=== PATIENT | female | born 1955 | race Caucasian/White ===

== ENCOUNTER 2021-06-24 10:02 | Emergency (ER) | payer MEDICARE ==
[2021-06-24] MEDS ORDERED: SODIUM CHLORIDE 0.9% 1,000 ML IV STA (10:28)
[2021-06-24 11:11] LABS: BASOPHILS # (AUTO) 0.1 10^3/uL (0.0-0.1); BASOPHILS % (AUTO) 0.7 %; EOSINOPHILS # (AUTO) 0.4 10^3/uL (0.0-0.7); EOSINOPHILS % (AUTO) 5.1 %; HCT - HEMATOCRIT 36.2 % (37.0-47.0); HGB - HEMOGLOBIN 11.5 g/dL (12.0-16.0); LYMPHOCYTES # (AUTO) 2.2 10^3/uL (1.5-3.5); MEAN CORPUSCULAR HEMOGLOBIN 27.3 pg (27.0-31.0); MEAN CORPUSCULAR HGB CONC 31.8 g/dL (32.0-36.0); MEAN CORPUSCULAR VOLUME 85.8 fL (81.0-99.0); MEAN PLATELET VOLUME 8.8 fL (7.9-10.8); MONOCYTES # (AUTO) 0.8 10^3/uL (0.0-1.0); MONOCYTES % (AUTO) 10.5 %; NEUTROPHILS # (AUTO) 4.2 10^3/uL (1.5-6.6); NEUTROPHILS % (AUTO) 54.4 %; PLT - PLATELET COUNT 265 10^3/uL (130-450); RED BLOOD COUNT 4.22 10^6/uL (4.20-5.40); RED CELL DISTRIBUTION WIDTH 14.1 % (12.0-15.0); WHITE BLOOD COUNT 7.7 x10^3/uL (4.8-10.8)
--- NOTE | 2021-06-24 11:23 | CT Report ---
PROCEDURE: HEAD WO INDICATIONS: visual changes TECHNIQUE: Noncontrast 4.5 mm thick angled axial sections acquired from the foramen magnum to the vertex. For r adiation dose reduction, the following was used: automated exposure control, adjustment of mA and/or kV according to patient size. COMPARISON: None. FINDINGS: Image quality: There is streak artifact seen through the skull base. CSF spaces: Basal cisterns are patent. No extra-axial fluid collections. Ventricles are normal in size and shape. Brain: No midline shift. No intracranial masses or hemorrhage. [place]-white matter interface is norm al. Skull and face: Calvarium and visualized facial bones are intact, without suspicious lesions. Sinuses: Visualized sinuses and mastoids are clear. IMPRESSION: Unremarkable noncontrast head CT, without an imaging explanation found for the patient's presenting h istory. If it would be helpful for clinical management decision making, please consider a dedicated brain MRI (orbits protocol, without and with contrast) for further evaluation (assuming that there is no contr aindication). Reviewed by: Devante Colon MD on 06/24/2021 10:[address] [facility] Approved by: Devante Colon MD on 06/24/2021 10:[address] [facility] Station ID: [id number]
[2021-06-24 11:24] LABS: ALBUMIN 3.7 g/dL (3.2-5.5); ALBUMIN/GLOBULIN RATIO 1.1 (1.0-2.2); BILIRUBIN,TOTAL 0.5 mg/dL (0.2-1.0); CALCIUM 9.2 mg/dL (8.5-10.3); CREATININE 0.7 mg/dL (0.4-1.0); POTASSIUM 4.1 mmol/L (3.5-5.0); TOTAL PROTEIN 7.1 g/dL (6.7-8.2)
--- NOTE | 2021-06-24 11:24 | XRAY Report ---
PROCEDURE: Chest 1 View X-Ray INDICATIONS: chest pain TECHNIQUE: One view of the chest was acquired. COMPARISON: Correlation is made with the accompanying head CT, 06/24/2021. FINDINGS: Surgical changes and devices: None. Lungs and pleura: No pleural effusions or pneumothorax. Lungs are clear. Mediastinum: Mediastinal contours appear normal. Heart size is normal. Bones and chest wall: No suspicious bony lesions. Age-appropriate degenerative changes are seen. O verlying soft tissues appear unremarkable. IMPRESSION: Unremarkable portable chest for age. Reviewed by: Devante Colon MD on 06/24/2021 10:22 AM [facility] Approved by: Devante Colon MD on 06/24/2021 10:22 AM [facility] Station ID: [id number]
[2021-06-24] MEDS ORDERED: GADOBUTROL 7.5 MMOL/7.5 ML VIAL ONE (12:51)
--- NOTE | 2021-06-24 14:32 | MRI Report ---
PROCEDURE: Brain W/WO INDICATIONS: intermittent visual changes CONTRAST: IV CONTRAST: Gadavist ml: 7.1 TECHNIQUE: Noncontrast axial T1 spin echo, axial T2 fast spin echo, sagittal and axial FLAIR, coronal T2 fast sp in echo, axial gradient echo, axial diffusion and ADC through the brain. After the administration of contrast, axial and coronal T1 spin echo with fat saturation through the brain. Additional thin sect ion coronal T2-weighted images were obtained through the midbrain and the orbits. Additional thin sec tion axial T1-weighted pre and postcontrast imaging was obtained through the orbits, with postcontras t fat-saturated images in the coronal and axial planes. COMPARISON: Correlation is made with the prior head CT, 06/24/2021. FINDINGS: Image quality: Excellent. CSF spaces: Basal cisterns are patent. No extra-axial fluid collections. Ventricles are normal in size and shape. Brain: No midline shift. No intracranial bleeds or masses. No abnormal intracranial enhancement. There is cerebral volume loss for age. There is periventricular white matter chronic small vessel is chemic change. The brainstem appears normal. Diffusion-weighted images demonstrate no acute ischemi c insults. No chronic ischemic insults. Normal intravascular flow voids are present. Skull and face: Calvarial marrow is normal in signal. In this patient with this given history, scrutiny is given to the orbits. No significant orbital abno rmality can be seen. The globes demonstrate a normal, symmetric appearance. No orbital masses are see n. The extraocular muscles demonstrate a normal, symmetric appearance. Sinuses: Sinuses and mastoids appear clear. IMPRESSION: No imaging explanation is found for the patient's presenting symptoms. No orbital abnormality can be seen. No findings of acute or subacute infarction are seen. Age-appropriate brain parenchymal volume loss and chronic small vessel ischemic change can be seen. Reviewed by: Devante Colon MD on 06/24/2021 1:31 PM [facility] Approved by: Devante Colon MD on 06/24/2021 1:31 PM [facility] Station ID: [id number]
--- NOTE | 2021-06-24 14:46 | ED Physician Documentation ---
History of Present Illness - Stated complaint Stated Complaint: SOA/DOUBLE VISION - Chief complaint Chief Complaint: Resp - History obtained from History obtained from: Patient - Additonal information Additional information: Patient comes emergency department for chief complaint of increasing dyspnea on exertion for the last 3 months and also, brief, intermittent episodes of diplopia. She states that the diplopic episodes have occurred randomly and by weeks of time. She has had about 5 episodes so far. She states that she will have a sudden sense of double vision that involves only 1 eye, though can be either 1 or the other. She states that she knows is just 1 eye because she will cover her eyes 1 at a time and she can detect the diplopia even while just looking with one eye. She states that the episodes last maybe 1 minute and then resolve on their own. She also states she has had an episode of "hazy" vision in the lower half of her vision that also lasted approximately 30 to 60 seconds and then went away. She states she will feel a strange feeling of awareness of her eye when these episodes happen, but no pain. She denies any other symptoms of any kind when this happens. She has not had any other neurologic symptoms whatsoever. No history of of stroke. The patient states that she normally walks a lot and that she started to notice that on her morning walks a few months ago, she was becoming more winded than usual. She states that she began to have to stop sometimes 3 times going uphill where she had not had to do this before. Patient states that yesterday, she noticed that even is walking around her house and talking at the same time made her feel short of breath. She denies any chest pain. No nausea. Patient states that she has no history of coronary artery disease. There is no history in her family except for 2 relatives who were smokers and otherwise did not take care of themselves. No primary relatives with coronary artery disease. Patient is not a smoker. No diabetes. She has a history of hypertension which is well controlled. No other complaints at this time. She states she is feeling fine just sitting in the bed. She denies any chest pain, nausea, or facial sweating. She has not feeling short of breath right now. She states that they live on the [address] in [place] most of the time, but has been up here helping her mom and building a house that they can living part-time to help her mother. Patient states they have been here about a year and that has been very stressful. She also states that her primary doctors at [place] so she has not seen her doctor in over a year. She does have an appointment coming up in August when they go back to [place]. She does not have a primary doctor here. Review of Systems Ten Systems: 10 systems reviewed and negative Constitutional: reports: Reviewed and negative Eyes: reports: Other (visual phenomena) Ears: reports: Reviewed and negative Nose: reports: Reviewed and negative Throat: reports: Reviewed and negative Cardiac: reports: Reviewed and negative. denies: Chest pain / pressure Respiratory: reports: Dyspnea GI: reports: Reviewed and negative : reports: Reviewed and negative Skin: reports: Reviewed and negative Musculoskeletal: reports: Reviewed and negative Neurologic: reports: Reviewed and negative Psychiatric: reports: Reviewed and negative Endocrine: reports: Reviewed and negative Immunocompromised: reports: Reviewed and negative PD PAST MEDICAL HISTORY - Past Medical History Past Medical History: Yes Cardiovascular: High cholesterol - Allergies Allergies/Adverse Reactions: Allergies Allergy/AdvReac Type Severity Reaction Status Date / Time No Known Drug Allergies Allergy Verified 06/24/21 10:09 - Social History Does the pt smoke?: No Smoking Status: Never smoker PD ED PE NORMAL - Vitals Vital signs reviewed: Yes - General General: Alert and oriented X 3, No acute distress, Well developed/nourished - HEENT HEENT: Atraumatic, PERRL, EOMI, Moist mucous membranes - Neck Neck: Supple, no meningeal sign - Cardiac Cardiac: RRR, No murmur, Strong equal pulses - Respiratory Respiratory: No respiratory distress, Clear bilaterally - Abdomen Abdomen: Soft, Non tender, Non distended - Derm Derm: Normal color, Warm and dry, No rash - Extremities Extremities: No deformity, No edema, No calf tenderness / cord - Neuro Neuro: Alert and oriented X 3, 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, No motor deficit, No sensory deficit, Normal speech - Psych Psych: Normal mood, Normal affect Results - Vitals Vitals: Oxygen O2 Source Room air - EKG (time done) 1115 Rate: Rate (enter#) (68) Rhythm: NSR [place]: Normal Intervals: Normal [place] QRS: Normal Ischemia: Normal ST segments Compare to prior EKG: Old EKG unavailable Computer interpretation: Agree with computer - Labs Labs: Laboratory Tests 06/24/21 06/24/21 06/24/21 10:51 10:51 10:51 WBC 7.7 RBC 4.22 Hgb 11.5 L Hct 36.2 L MCV 85.8 MCH 27.3 MCHC 31.8 L RDW 14.1 Plt Count 265 MPV 8.8 Neut # (Auto) 4.2 Lymph # (Auto) 2.2 [place] # (Auto) 0.8 Eos # (Auto) 0.4 Baso # (Auto) 0.1 Absolute Nucleated RBC 0.00 Nucleated RBC % 0.0 Sodium 139 Potassium 4.1 Chloride 103 Carbon Dioxide 26 Anion Gap 10.0 BUN 15 Creatinine 0.7 Estimated GFR (MDRD) 84 L Glucose 97 Calcium 9.2 Total Bilirubin 0.5 AST 14 ALT 11 Alkaline Phosphatase 80 B-Natriuretic Peptide 50 Total Protein 7.1 Albumin 3.7 Globulin 3.4 Albumin/Globulin Ratio 1.1 Lipase 29 - Rads (name of study) Ct head Radiology: Final report received, EMP read indepedently, See rad report (neg) MR brain Radiology: Final report received, EMP read indepedently, See rad report (neg) CXR Radiology: Final report received, EMP read indepedently, See rad report (neg) PD MEDICAL DECISION MAKING - ED course Complexity details: reviewed results, re-evaluated patient, considered differential, d/w patient ED course: PT was well-appearing in the ED, but given her sx and lack of local PCP, she was worked up extensively, with labs, EKG, CXR, CT head, and ultimately, MR brain. The entire work-up was negative, and pt had no sx while in the ED. We have discussed that it is very important that the pt immediately establish herself with primary care to follow up on both of these issues. I have also recommended ophthalmology follow-up, and have given her recommendations for both. We have discussed the usual indications for return. Departure - Departure Disposition: 01 Home, Self Care Clinical Impression: Dyspnea on exertion, Diplopia Condition: Stable Instructions: ED Double Vision, ED Dyspnea Shortness of Breath Follow-Up: Alejo Christensen MD [Credentialed Staff Provider] - Kevin Ulloa MD [Provider Admit Priv/Credential] - Marco Antonio Garibay MD [Physician No Access] - Carlos Soni MD [Provider Admit Priv/Credential] - Nish Serrano MD [Provider Admit Priv/Credential] - Comments: Your labs, CT scan, and MRI all look good, as does your EKG. It is not clear why you are having the shortness of breath with exertion and the episodes of visual changes. However, it is very important that you establish primary care while you are here on would be, to get this further investigated. You should also follow-up with ophthalmology, just to be sure you do not have a primary eye issue. If you develop severe chest pain or shortness of breath, or other concerning symptoms such as facial sweating or nausea, please return to the emergency department immediately. Discharge Date/Time: 06/24/21 15:13
[2021-06-24 14:59] VITALS: BP 116/73
[2021-06-25] MEDS ORDERED: GADOBUTROL 7.5 MMOL/7.5 ML VIAL IVP ONE (11:07)
== END 2021-06-24 15:13 | disposition home or self-care (01) ==
LOC: ED 10:02
DX: R06.09 Other forms of dyspnea (principal); H53.2 Diplopia
CPT/HCPCS: 36415; 70450; 70553; 71045; 80053; 83690; 83880; 85025; 93005; 99283; 99284; A9585

== ENCOUNTER 2021-12-15 10:37 | Emergency (ER) | payer MEDICARE ==
[2021-12-15 11:03] LABS: BASOPHILS # (AUTO) 0.1 10^3/uL (0.0-0.1); BASOPHILS % (AUTO) 0.7 %; EOSINOPHILS # (AUTO) 0.3 10^3/uL (0.0-0.7); HGB - HEMOGLOBIN 11.4 g/dL (12.0-16.0); LYMPHOCYTES # (AUTO) 2.1 10^3/uL (1.5-3.5); LYMPHOCYTES % (AUTO) 18.8 %; MEAN CORPUSCULAR HGB CONC 31.7 g/dL (32.0-36.0); MONOCYTES # (AUTO) 0.7 10^3/uL (0.0-1.0); MONOCYTES % (AUTO) 6.3 %; NEUTROPHILS # (AUTO) 7.9 10^3/uL (1.5-6.6); NEUTROPHILS % (AUTO) 70.9 %; PLT - PLATELET COUNT 259 10^3/uL (130-450); RED BLOOD COUNT 4.39 10^6/uL (4.20-5.40); RED CELL DISTRIBUTION WIDTH 15.2 % (12.0-15.0); WHITE BLOOD COUNT 11.1 x10^3/uL (4.8-10.8)
[2021-12-15 11:15] LABS: ALBUMIN 4.1 g/dL (3.2-5.5); ALBUMIN/GLOBULIN RATIO 1.2 (1.0-2.2); BILIRUBIN,TOTAL 0.7 mg/dL (0.2-1.0); CALCIUM 9.5 mg/dL (8.5-10.3); CREATININE 0.6 mg/dL (0.4-1.0); POTASSIUM 3.8 mmol/L (3.5-5.0); TOTAL PROTEIN 7.6 g/dL (6.7-8.2)
--- NOTE | 2021-12-15 11:19 | ED Physician Documentation ---
PD HPI CHEST PAIN - Stated complaint Stated Complaint: CHEST PX, DIZZINESS - Chief complaint Chief Complaint: Cardiac - History obtained from History obtained from: Patient - History of Present Illness Timing - onset: Yesterday Timing - onset during: Light activity (Onset of substernal chest pain while shoveling a small hole to plant a tree. The pain persisted through the evening and overnight and this morning. It is lessened some but has not relieved with position, antacids, rest.) Timing - details: Abrupt onset, Still present (She remained with the chest pressure and tightness from the onset through evening and overnight and persists this morning though somewhat less.) Quality: Pressure, Tightness. No: Sharp Location: Substernal Radiation: Back Associated symptoms: Shortness of air, Feeling faint / dizzy. No: Diaphoresis, Nausea, Palpitations, Cough Similar symptoms before: No diagnosis (She had an episode of some lightheadedness along with some chest discomfort last June it was seen here in the ER. Follow-up with your primary care in [place] with MRI brain and ophthalmology because of blurred vision. No stress test done for the heart.) Recently seen: Not recently seen (She has been having exertionally related shortness of breath with even just walking to the beach and back from her house. This is not a long distance.) Review of Systems Constitutional: denies: Fever Nose: denies: Rhinorrhea / runny nose, Congestion Throat: denies: Sore throat Cardiac: denies: Palpitations, Pedal edema, Calf pain Respiratory: denies: Cough GI: denies: Abdominal Pain, Nausea, Vomiting, Bloody / black stool : denies: Dysuria Skin: denies: Rash, Lesions Musculoskeletal: denies: Neck pain, Back pain Neurologic: denies: Generalized weakness, Near syncope Psychiatric: denies: Depressed Immunocompromised: denies: Immunocompromised PD PAST MEDICAL HISTORY - Past Medical History Cardiovascular: High cholesterol Respiratory: None Neuro: None Endocrine/Autoimmune: None GI: None - Present Medications Home Medications: Ambulatory Orders Medication Instructions Recorded Confirmed Atorvastatin [Lipitor] 10 mg PO DAILY 12/15/21 12/15/21 - Allergies Allergies/Adverse Reactions: Allergies Allergy/AdvReac Type Severity Reaction Status Date / Time No Known Drug Allergies Allergy Verified 06/24/21 10:09 - Living Situation Living Situation: reports: With spouse/s.o. Living Arrangement: reports: At home (She lives in [place] but they have a second house here and would be. She has been here for 10 days.) - Social History Does the pt smoke?: No Smoking Status: Never smoker - Family History Family history: reports: CAD - POLST Patient has POLST: No PD ED PE NORMAL - Vitals Vital signs reviewed: Yes - General General: Alert and oriented X 3, No acute distress, Well developed/nourished - HEENT HEENT: Pharynx benign - Neck Neck: Supple, no meningeal sign, No adenopathy - Cardiac Cardiac: RRR, No murmur - Respiratory Respiratory: Clear bilaterally - Abdomen Abdomen: Normal bowel sounds, Soft, Non tender, No organomegaly - Derm Derm: Normal color, Warm and dry - Extremities Extremities: Normal ROM s pain, No edema, No calf tenderness / cord - Neuro Neuro: Alert and oriented X 3, No motor deficit, Normal speech Eye Opening: Spontaneous Motor: Obeys Commands Verbal: Oriented GCS Score: 15 - Psych Psych: Normal mood Results - Vitals Vitals: Vital Signs - 24 hr 12/15/21 12/15/21 12/15/21 10:48 11:21 12:00 Temperature 36.9 C Heart Rate 80 98 106 H Respiratory 19 18 18 Rate Blood Pressure 147/88 H 136/90 H 99/79 O2 Saturation 97 98 98 12/15/21 12/15/21 12/15/21 12:30 13:00 13:30 Temperature Heart Rate 77 82 88 Respiratory 14 16 15 Rate Blood Pressure 126/85 H 132/95 H 130/80 O2 Saturation 94 99 97 12/15/21 14:00 Temperature Heart Rate 87 Respiratory 24 Rate Blood Pressure 138/78 H O2 Saturation 97 Oxygen O2 Source Room air - EKG (time done) 10:48 Rate: Rate (enter#) (98) Rhythm: NSR [place]: Normal Intervals: Normal [place] QRS: Normal Ischemia: Normal ST segments. No: ST elevation c/w ischemia, ST depression - Labs Labs: Laboratory Tests 12/15/21 12/15/21 12/15/21 10:52 10:52 10:52 WBC 11.1 H RBC 4.39 Hgb 11.4 L Hct 36.0 L MCV 82.0 MCH 26.0 L MCHC 31.7 L RDW 15.2 H Plt Count 259 MPV 9.0 Neut # (Auto) 7.9 H Lymph # (Auto) 2.1 [place] # (Auto) 0.7 Eos # (Auto) 0.3 Baso # (Auto) 0.1 Absolute Nucleated RBC 0.00 Nucleated RBC % 0.0 Sodium 140 Potassium 3.8 Chloride 101 Carbon Dioxide 26 Anion Gap 13.0 BUN 14 Creatinine 0.6 Estimated GFR (MDRD) 100 Glucose 109 H Calcium 9.5 Magnesium Total Bilirubin 0.7 AST 55 H ALT 18 Alkaline Phosphatase 98 Troponin I High Sens 8617.6 H* B-Natriuretic Peptide Total Protein 7.6 Albumin 4.1 Globulin 3.5 Albumin/Globulin Ratio 1.2 Lipase 25 SARS-CoV-2 (PCR) 12/15/21 12/15/21 12/15/21 11:32 11:32 11:43 WBC RBC Hgb Hct MCV MCH MCHC RDW Plt Count MPV Neut # (Auto) Lymph # (Auto) [place] # (Auto) Eos # (Auto) Baso # (Auto) Absolute Nucleated RBC Nucleated RBC % Sodium Potassium Chloride Carbon Dioxide Anion Gap BUN Creatinine Estimated GFR (MDRD) Glucose Calcium Magnesium 2.3 Total Bilirubin AST ALT Alkaline Phosphatase Troponin I High Sens B-Natriuretic Peptide 146 H Total Protein Albumin Globulin Albumin/Globulin Ratio Lipase SARS-CoV-2 (PCR) NOT DETECTED - Rads (name of study) chest xray Radiology: Prelim report reviewed (mild vascular congestion), See rad report PD MEDICAL DECISION MAKING - ED course Complexity details: considered differential (Symptoms concerning for exertional angina with now acute [place]. EKG does not show any ST changes. Chest x-ray is showing perhaps some vascular congestion. However the troponin is markedly elevated consistent with acute myocardial injury. She will need cardiology evaluation and intervention.), d/w patient - Critical Care Time(min): 45 Time Includes: Direct patient care, Document care, Coordinate care, Medical consult Data interpretation: Labs, CXR Procedures excluded from critical care time: EKG Departure - Departure Disposition: 02 Transfer Acute Care Hosp Clinical Impression: Non-STEMI (non-ST elevated myocardial infarction) Condition: Stable Record reviewed to determine appropriate education?: Yes
--- NOTE | 2021-12-15 11:23 | XRAY Report ---
PROCEDURE: Chest 1 View X-Ray INDICATIONS: Chest pain TECHNIQUE: One view of the chest was acquired. COMPARISON: 06/24/2021 FINDINGS: Surgical changes and devices: None. Lungs and pleura: No pleural effusions or pneumothorax. Low lung volumes can be seen, causing a lacrosse player wded appearance to the lung markings. Minimal generalized interstitial prominence can be seen. Mediastinum: Mediastinal contours appear normal. Heart size is normal. Bones and chest wall: No suspicious bony lesions. Overlying soft tissues appear unremarkable. IMPRESSION: Minimal generalized interstitial prominence can be seen. Please consider artifact from the incomplete inspiratory result versus pulmonary edema. Atypical infection (including COVID pneumonia) is also po ssible, yet considered to be less likely. Reviewed by: Devante Colon MD on 12/15/2021 10:22 AM [facility] Approved by: Devante Colon MD on 12/15/2021 10:22 AM [facility] Station ID: [id number]
[2021-12-15] MEDS ORDERED: METOPROLOL 5 MG/5 ML VIAL IVP STA (11:45)
[2021-12-15] MEDS ORDERED: ASPIRIN CHEW 81 MG TABLET PO STA (11:45)
[2021-12-15] MEDS ORDERED: ATORVASTATIN 40 MG TABLET PO STA (11:45)
[2021-12-15] MEDS ORDERED: CLOPIDOGREL 75 MG TABLET PO STA (11:45)
[2021-12-15] MEDS ORDERED: HEPARIN 25000UNITS/500ML (D5W) 25,000 UNIT/500 ML BAG IV SCH ×2 (12:00)
[2021-12-15 16:02] VITALS: BP 122/107
== END 2021-12-15 16:08 | disposition short-term general hospital (02) ==
LOC: ED 10:37
DX: I21.4 Non-ST elevation (NSTEMI) myocardial infarction (principal); Z20.822 Contact with and (suspected) exposure to COVID-19
CPT/HCPCS: 36415; 71045; 80053; 83690; 83735; 83880; 84484; 85025; 87635; 93005; 96374; 96375; 99285; 99291; A9270

== ENCOUNTER 2021-12-15 16:11 | Outpatient (CLI) | payer MEDICARE | END 2021-12-15 16:12 | disposition short-term general hospital (02) | LOC: EMS 16:11 | PROVIDERS: ATTEND Emergency Medicine | DX: I21.4 Non-ST elevation (NSTEMI) myocardial infarction (principal) | CPT/HCPCS: A0425; A0426 ==

== ENCOUNTER 2024-03-08 16:27 | Outpatient (CLI) | payer MEDICARE | END 2024-03-08 16:28 | disposition home or self-care (01) | LOC: RT 16:27 | PROVIDERS: ATTEND Surgery Plastic and Reconstructive Surgery | DX: Z01.810 Encounter for preprocedural cardiovascular examination (principal) | CPT/HCPCS: 93005 ==

== ENCOUNTER 2024-03-08 16:29 | Outpatient (CLI) | payer MEDICARE ==
--- NOTE | 2024-03-08 17:19 | XRAY Report ---
PROCEDURE: Chest 2V INDICATIONS: PRE OP TECHNIQUE: 2 views of the chest were acquired. COMPARISON: 12/15/2021 FINDINGS: Surgical changes and devices: There is a right-sided chest port. Sternotomy changes are noted. Lungs and pleura: No pleural effusions or pneumothorax. Lungs are clear. Mediastinum: Mediastinal contours appear normal. Heart size is normal. Bones and chest wall: No suspicious bony lesions. Age-appropriate degenerative changes are seen. O verlying soft tissues appear unremarkable. IMPRESSION: No acute cardiopulmonary process. Reviewed by: Devante Colon MD on 03/08/2024 4:18 PM [facility] Approved by: Devante Colon MD on 03/08/2024 4:18 PM [facility] Station ID: [id number]
== END 2024-03-08 16:30 | disposition home or self-care (01) ==
LOC: DI 16:29
DX: Z01.818 Encounter for other preprocedural examination (principal)